=== PATIENT | male | born 1935 | race Caucasian/White ===

== ENCOUNTER 2022-04-17 20:59 | Inpatient (IN) | payer OTHER ==
[~2022-04-17] VITALS: Ht 180.3 cm; Wt 68.9 kg
--- NOTE | 2022-04-17 21:08 | NUR ---
Dr. douglas at bedside, MSE in progress.
[2022-04-17] MEDS ORDERED: METO-357 PO (21:23)
[2022-04-17] MEDS ORDERED: MULT-594 PO (21:23)
[2022-04-17] MEDS ORDERED: ASPI81TA31 PO (21:23)
[2022-04-17] MEDS ORDERED: ACET-2154 PO (21:23)
[2022-04-17] MEDS ORDERED: DULO20CA PO (21:23)
[2022-04-17] MEDS ORDERED: METO50TA7 PO (21:23)
[2022-04-17] MEDS ORDERED: DOCU100C36 PO (21:23)
[2022-04-17] MEDS ORDERED: IBUP-1957 PO (21:23)
[2022-04-17] MEDS ORDERED: LISI40TA13 PO (21:23)
[2022-04-17] MEDS ORDERED: IV NORMAL SALINE 500 ML BAG IV ONE (21:30)
[2022-04-17 22:29] LABS: HEMATOCRIT 43.6 % (36.7-47.1); MEAN CORPUSCULAR HEMOGLOBIN 29.5 uug (23.8-33.4); PLATELET COUNT (AUTO) 147 K/uL (152-348)
[2022-04-17 23:05] LABS: CARBON DIOXIDE 28 mmol/L (21-32); CHLORIDE 105 mmol/L (98-107); CREATININE 0.9 mg/dL (0.6-1.3); GLUCOSE 102 mg/dL (74-106); POTASSIUM 4.4 mmol/L (3.5-5.1); UREA NITROGEN, BLOOD 14 mg/dL (7-18)
[2022-04-17 23:14] LABS: ALANINE AMINOTRANSFERASE 23 U/L (16-63); ALKALINE PHOSPHATASE 102 U/L (50-136); ASPARTATE AMINOTRANSFERASE 21 U/L (15-37); BILIRUBIN,DIRECT 0.2 mg/dL (0.0-0.2); BILIRUBIN,TOTAL 0.7 mg/dL (0.2-1.0); TOTAL PROTEIN, SERUM 6.6 g/dL (6.4-8.2)
--- NOTE | 2022-04-18 03:23 | NUR ---
Called [facility] for panel call.
[2022-04-18] MEDS ORDERED: MORPHINE SULFATE 2 MG/1 ML DISP.SYRIN IV PRN (03:30)
[2022-04-18] MEDS ORDERED: hydrALAZINE HCL 20 MG/1 ML VIAL IV PRN (03:30)
[2022-04-18] MEDS ORDERED: ONDANSETRON 4 MG/2 ML VIAL IV PRN (03:30)
[2022-04-18] MEDS ORDERED: ACETAMINOPHEN 325 MG TABLET PO PRN (03:30)
[2022-04-18] MEDS ORDERED: IOHEXOL 350 100 ML INFUS..BTL ONE (03:42)
[2022-04-18] MEDS ORDERED: IV NORMAL SALINE 250 ML IV ONE (03:43)
[2022-04-18] MEDS ORDERED: SWABABLE VALVE TRANSFER SET EA MC ONE (03:43)
[2022-04-18] MEDS ORDERED: IV NS 1000 ML 1,000 ML IV SCH (03:45)
[2022-04-18] MEDS ORDERED: hydrALAZINE HCL 20 MG/1 ML VIAL ONE (05:55)
--- NOTE | 2022-04-18 07:13 | NUR ---
Houseman assumes care: 1st contact with patient, asleep, easily arousable, oriented x4 when awake, moving all extremities, respiration :easy, unlabored and even, calm & cooperative, skin warm and dry,+mild pains@back of the head, no visible injuries seen. Patient is waiting for an accepting telemetry nurse & bed at this time.
[2022-04-18] MEDS ORDERED: DULO30CA52 PO (07:34)
[2022-04-18] MEDS ORDERED: HEPARIN SODIUM,PORCINE 5,000 UNITS/ML VIAL ONE (07:54)
[2022-04-18] MEDS ORDERED: LISINOPRIL 10 MG TABLET ONE (07:54)
[2022-04-18] MEDS ORDERED: ASPIRIN 81 MG TAB.CHEW ONE (07:54)
[2022-04-18] MEDS ORDERED: DOCUSATE SODIUM 100 MG CAPSULE PO ONE (07:54)
[2022-04-18] MEDS ORDERED: ACETAMINOPHEN ES 500 MG TABLET ONE (07:55)
[2022-04-18] MEDS: IV NS 1000 ML 1,000 ML IV PRN ×2 (08:02→22:22)
[2022-04-18] MEDS: DOCUSATE SODIUM 100 MG CAPSULE PO SCH (08:03)
[2022-04-18] MEDS: LISINOPRIL 20 MG TABLET PO SCH (08:03)
[2022-04-18] MEDS: ASPIRIN 81 MG TAB.CHEW PO SCH (08:03)
[2022-04-18] MEDS: HEPARIN SODIUM,PORCINE 5,000 UNITS/ML VIAL SQ SCH ×2 (08:04→20:31)
[2022-04-18] MEDS ORDERED: ACETAMINOPHEN ES 500 MG TABLET PO ONE (08:15)
[2022-04-18] MEDS: MULTIVITAMINS,THERAPEUTIC TABLET PO SCH (08:22)
[2022-04-18] MEDS: DULOXETINE 30 MG CAPSULE.DR PO SCH (08:22)
--- NOTE | 2022-04-18 08:32 | NUR ---
I attempted to give nursing SBAR. Nurse Harleen will call ER as soon as possible. Patient will go to room 322.
[2022-04-18] MEDS ORDERED: DULOXETINE 20 MG CAPSULE.DR PO SCH (09:00)
--- NOTE | 2022-04-18 10:15 | NUR ---
[facility] this [facility], 87 [facility] with the chief complaint of fall and hurting his back, with the diagnosis of recurrent syncope. Transferred to bed comfortably. Routine admission care rendered. Placed on Tele SR. Awake, alert oriented x 4, legally blind. IVF restarted NS at 70ml/hr, infusing well. Room air 98% O2 sat. Call light with in reach. Bed alarm on.
[2022-04-18 10:27] VITALS: BP 169/88
[2022-04-18 13:08] VITALS: BP 172/90
[2022-04-18 13:11] VITALS: BP 149/77
[2022-04-18 13:13] VITALS: BP 152/82
--- NOTE | 2022-04-18 13:15 | NUR ---
Orthostatic BP taken and recorded
[2022-04-18] MEDS ORDERED: CLOP75TA33 PO (13:54)
[2022-04-18] MEDS ORDERED: ATOR20TA PO (13:54)
[2022-04-18 16:00] VITALS: BP 150/92
--- NOTE | 2022-04-18 18:43 | NUR ---
UA CS specimen sent to lab. Call light with in reach. Bed alarm on. IVF infusing well. Not in distress
[2022-04-18 20:23] VITALS: BP 135/79
[2022-04-18] MEDS ORDERED: ATORVASTATIN 20 MG TABLET PO SCH (21:00)
[2022-04-19 00:01] VITALS: BP 133/76
[2022-04-19 04:38] VITALS: BP 125/66
--- NOTE | 2022-04-19 05:54 | NUR ---
Slept throughout the night. Able to verbalize needs. IV site intact. No distress noted. Able to ambulate with assistance, bed alarm on. Safety maintained. Will endorse to day shift.
[2022-04-19 06:40] LABS: HEMATOCRIT 42.4 % (36.7-47.1); MEAN CORPUSCULAR HEMOGLOBIN 29.6 uug (23.8-33.4); MEAN CORPUSCULAR VOLUME 87.8 fL (73.0-96.2); PLATELET COUNT (AUTO) 147 K/uL (152-348)
[2022-04-19 07:12] LABS: BILIRUBIN,TOTAL 1.1 mg/dL (0.2-1.0); CREATININE 0.9 mg/dL (0.6-1.3); MAGNESIUM 1.9 mg/dL (1.8-2.4); PHOSPHOROUS 2.9 mg/dL (2.5-4.9); POTASSIUM 3.4 mmol/L (3.5-5.1); TOTAL PROTEIN, SERUM 5.8 g/dL (6.4-8.2)
[2022-04-19 07:16] LABS: *BILIRUBIN,URIN NEGATIVE (NEGATIVE); *BLOOD, URINE NEGATIVE (NEGATIVE); *CLARITY,URINE CLEAR (CLEAR); *COLOR,URINE YELLOW (YELLOW); *KETONES,URINE NEGATIVE (NEGATIVE); LEUKOCYTE ESTERASE ,URINE NEGATIVE (NEGATIVE); NITRITE, URINE NEGATIVE (NEGATIVE); PH,URINE 6.5 (5.0-8.0); UGLUCOSE NEGATIVE (NEGATIVE)
[2022-04-19] MEDS ORDERED: POTASSIUM CHLORIDE 20 MEQ POWDER PACKET GT ONE (07:45)
[2022-04-19 08:00] VITALS: BP 125/73
[2022-04-19] MEDS ORDERED: POTASSIUM CHLORIDE 20 MEQ TAB.PRT.SR PO ONE ×2 (08:00→10:00)
[2022-04-19 08:25] LABS: BACTERIA,URINE NONE SEEN /HPF (NONE SEEN); RBC,URINE NONE SEEN /HPF (0-3); SQUAMOUS EPITHELIAL CELL,UR FEW /HPF (NONE SEEN); WBC,URINE 0-3 /HPF (0-3)
[2022-04-19] MEDS ORDERED: CLOPIDOGREL 75 MG TABLET PO SCH (09:00)
[2022-04-19] MEDS: DOCUSATE SODIUM 100 MG CAPSULE PO SCH (09:49)
[2022-04-19] MEDS: DULOXETINE 30 MG CAPSULE.DR PO SCH (09:50)
[2022-04-19] MEDS: ASPIRIN 81 MG TAB.CHEW PO SCH (09:50)
[2022-04-19] MEDS: LISINOPRIL 20 MG TABLET PO SCH (09:50)
[2022-04-19] MEDS: MULTIVITAMINS,THERAPEUTIC TABLET PO SCH (09:50)
[2022-04-19] MEDS: HEPARIN SODIUM,PORCINE 5,000 UNITS/ML VIAL SQ SCH (09:52)
[2022-04-19] MEDS ORDERED: IV NS 1000 ML 1,000 ML IV ONE (10:15)
[2022-04-19 12:32] VITALS: BP 152/87
--- NOTE | 2022-04-19 14:28 | NUR ---
Report given to Annalee JAIME of [facility]. Patient scheduled for nut picker between [id number]
[2022-04-19 16:01] VITALS: BP 143/83
--- NOTE | 2022-04-19 16:36 | NUR ---
IV site removed. ID badge removed. Discharge education provided.
== END 2022-04-19 16:30 | DRG 74 ==
LOC: ER 21:02 → TRANSITION 04-18 03:26 → TELE3 04-18 09:45
PROVIDERS: ADMIT Registered Nurse; ATTEND Registered Nurse
DX: G90.8 Other disorders of autonomic nervous system (principal); G89.29 Other chronic pain; H54.8 Legal blindness, as defined in USA; I10 Essential (primary) hypertension; R32 Unspecified urinary incontinence; Z85.528 Personal history of other malignant neoplasm of kidney; R15.9 Full incontinence of feces; Z20.822 Contact with and (suspected) exposure to COVID-19; E86.0 Dehydration; I16.0 Hypertensive urgency
CPT/HCPCS: 36415; 70450; 71045; 72125; 83735; 84100; 84484; 85025; 85730; 93005; 93307; A4663; A9150; G0378; J0360; J1644; J7040; Q9967